=== PATIENT | female | born 1995 | race Caucasian/White ===

== ENCOUNTER 2022-04-10 18:58 | Emergency (ER) | payer BC, SELFPAY ==
[2022-04-10 19:02] VITALS: BP 94/79; PULSE 95; RESP 18; TEMP 36.7; O2SAT 99; BMI 21.3
--- NOTE | 2022-04-10 19:31 | US_ITS ---
STUDY: ULTRASOUND TRANSVAGINAL CLINICAL: Female, 27 years old. Right lower quadrant abdominal pain. TECHNIQUE: Transvaginal COMPARISON: None. FINDINGS: The anteverted and anteflexed and midline uterus measures 7.4 x 4.4 x 3.2 cm There are no myometrial masses. Endometrium measures 3 mm in thickness and is hyperechoic.. There are no endometrial masses, and there is no fluid in the endometrial cavity. There is an IUD in satisfactory position within the endometrial cavity. Normal uterine cervix. Normal right ovary, measuring 2.4 x 2.6 x 1.9 cm cm. There are multiple follicles without a dominant cyst. Normal vascularity on Doppler imaging. No right adnexal mass or fluid collection. Normal left ovary, measuring 2.9 x 1.8 x 1.7 cm cm. There are multiple follicles without a dominant cyst. Normal vascularity on Doppler imaging. No left adnexal mass or fluid collection. There is no free fluid in the pelvis. Polycystic ovary disease: No. US/Transvaginal Non- IMPRESSION: Normal pelvic ultrasound. There is an IUD in satisfactory position within the endometrial cavity. Electronically Signed: Tonny Moulton DO at 20:55 EST ,
--- NOTE | 2022-04-10 19:41 | EX.ED.DYSGE1 ---
HPI <DANY Joseph - Last Filed: 04/10/22 20:58> History of Present Illness Chief Complaint: Abd Pain Narrative Narrative: Right lower quadrant abdominal pain PFSH <DANY Joseph - Last Filed: 04/10/22 20:58> PFSH Allergy/AdvReac Type Severity Reaction Status Date / Time No Known Allergies Allergy Verified 04/10/22 19:01 Social History Smoking Status: Never smoker ROS <DANY Joseph - Last Filed: 04/10/22 20:58> ROS ED ROS Narrative Constitutional: Negative for fever, chills, weight loss, weakness Eyes: Negative for vision loss, vision change, double vision ENT: Negative for any sore throat, ear pain, congestion Cardiovascular: Negative for any chest pain, tightness, palpitations Respiratory: Negative for any cough, sputum production, hemoptysis, dyspnea, dyspnea on exertion, orthopnea Gastrointestinal: Negative for any nausea, vomiting, diarrhea, constipation, blood in stool, blood in vomit. Positive right lower quadrant abdominal pain : Negative for any urinary frequency, dysuria, retention, blood in urine Muscle skeletal: Negative for any muscle joint pain, stiffness, myalgias, arthralgias, neck pain, back pain Neurological: Negative for any headache, syncope, numbness or tingling, dizziness Skin: Negative for any rashes, lumps, itching, abrasions, lacerations Psychiatric: Negative for any depression, anxiety, stress, suicidal ideation, homicidal ideation Hematologic: Negative for any easy bruising, excessive bruising, easy bleeding Allergies: Negative for any eczema, hives, rash EXAM <DANY Joseph - Last Filed: 04/10/22 20:58> Physical Exam Narrative Exam Narrative: Vital signs reviewed. HEET: Head normocephalic atraumatic, TMs clear bilaterally. Posterior pharynx is clear, moist mucous membranes. Nares clear bilaterally. Neck: Supple with no lymphadenopathy or tenderness. No signs of meningismus, negative jolt sign. Cardiac: Regular rate and rhythm no murmurs gallops or rubs, equal peripheral pulses bilaterally. Respiratory: Lungs clear to auscultation bilaterally. No chest tenderness. Abdomen: Soft, nondistended. No abdominal bruit or pulsatile masses. No hepatosplenomegaly. Bowel sounds equal in all quadrants. Patient does have pain to palpation to the right lower quadrant, physical examination is more pelvic and abdomen. Extremities: No peripheral edema, no signs of gross trauma or deformity. Active full range of motion of all extremities. Neuro: Cranial nerves II through XII intact, no focal neurological deficits. Skin: Clean dry and intact with no rash, purpura, petechiae, vesicles or pustules. Backs/flank: No CVA tenderness, no midline spinal tenderness, no deformity. Psych: Normal mood and affect. No SI, HI or acute psychosis. Const Vital Signs: 04/10/22 19:02 Temperature 98.0 F Temperature Source Temporal Pulse Rate 95 Respiratory Rate 18 Blood Pressure 94/79 Blood Pressure Mean 84 Pulse Ox 99 Oxygen Delivery Method Room Air <Dr. Marycarmen Galvez MD - Last Filed: 04/10/22 23:27> Physical Exam Const Vital Signs: 04/10/22 19:02 Temperature 98.0 F Temperature Source Temporal Pulse Rate 95 Respiratory Rate 18 Blood Pressure 94/79 Blood Pressure Mean 84 Pulse Ox 99 Oxygen Delivery Method Room Air MDM <DANY Josehp - Last Filed: 04/10/22 20:58> [facility] [place] Lab Data Labs: Laboratory Results - last 24 hr 04/10/22 04/10/22 04/10/22 19:43 19:43 21:25 WBC 7.7 RBC 4.60 Hgb 13.8 Hct 40.5 MCV 88.0 MCH 30.0 MCHC 34.1 RDW Std Deviation 37.9 RDW Coeff of Maritza 11.8 Plt Count 209 MPV 9.7 Immature Gran % (Auto) 0.400 Neut % (Auto) 52.9 Lymph % (Auto) 35.3 [place] % (Auto) 9.3 Eos % (Auto) 1.7 Baso % (Auto) 0.4 Absolute Neuts (auto) 4.1 Absolute Lymphs (auto) 2.73 Nucleated RBC % 0 Sodium 141 Potassium 3.6 Chloride 108 H Carbon Dioxide 28.0 Anion Gap 5 BUN 13 Creatinine 0.70 Estim Creat Clear Calc 90.29 Est GFR (MDRD) Af Amer 129 Est GFR (MDRD) Non-Af 107 BUN/Creatinine Ratio 18.7 Glucose 102 Calcium 9.3 Total Bilirubin 0.70 AST 11 L ALT 21 Alkaline Phosphatase 48 Total Protein 7.4 Albumin 3.8 Globulin 3.6 Albumin/Globulin Ratio 1.1 Lipase 88 Urine Color Yellow Urine Clarity Clear Urine pH 7.0 Ur Specific Graham 1.010 Urine Protein Negative Urine Glucose (UA) Normal Urine Ketones Negative Urine Occult Blood Negative Urine Nitrite Negative Urine Bilirubin Negative Urine Urobilinogen 1 H Ur Leukocyte Esterase 25 H Urine RBC 0 SEEN Urine WBC 0-5 SEEN Ur Squamous Epith Cells 0-5 SEEN Urine Bacteria 1+ Urine Mucus 3+ Urine Test Negative Radiography Diagnostic Testing: Clinical Impression(s) from Imaging Studies Transvaginal US 04/10/22 19:31 IMPRESSION: Normal pelvic ultrasound. There is an IUD in satisfactory position within the endometrial cavity. Electronically Signed: Tonny Moulton DO at 20:55 EST , Abdomen/Pelvis CT 04/10/22 22:00 IMPRESSION: Large colonic stool burden as can be seen with constipation. Normal appendix. Electronically Signed: Ashish Rodríguez MD at 23:21 EST , Treatment and Re-Evaluation Narrative: Patient appears well, patient appears nontoxic, vital signs are stable. Patient presents to the emergency department 1 day of right lower quadrant abdominal pain. Patient's physical examination was consistent with more of a lower pelvic abdominal pain. She will be started off with a pelvic ultrasound as well as some basic laboratory values. Patient when she is at rest is a minimal amount of pain, she denies any nausea or vomiting. <Dr. Marycarmen Galvez MD - Last Filed: 04/10/22 23:27> [facility] [place] Lab Data Attestation: I reviewed the patient's lab results. Labs: Laboratory Results - last 24 hr 04/10/22 04/10/22 04/10/22 19:43 19:43 21:25 WBC 7.7 RBC 4.60 Hgb 13.8 Hct 40.5 MCV 88.0 MCH 30.0 MCHC 34.1 RDW Std Deviation 37.9 RDW Coeff of Maritza 11.8 Plt Count 209 MPV 9.7 Immature Gran % (Auto) 0.400 Neut % (Auto) 52.9 Lymph % (Auto) 35.3 [place] % (Auto) 9.3 Eos % (Auto) 1.7 Baso % (Auto) 0.4 Absolute Neuts (auto) 4.1 Absolute Lymphs (auto) 2.73 Nucleated RBC % 0 Sodium 141 Potassium 3.6 Chloride 108 H Carbon Dioxide 28.0 Anion Gap 5 BUN 13 Creatinine 0.70 Estim Creat Clear Calc 90.29 Est GFR (MDRD) Af Amer 129 Est GFR (MDRD) Non-Af 107 BUN/Creatinine Ratio 18.7 Glucose 102 Calcium 9.3 Total Bilirubin 0.70 AST 11 L ALT 21 Alkaline Phosphatase 48 Total Protein 7.4 Albumin 3.8 Globulin 3.6 Albumin/Globulin Ratio 1.1 Lipase 88 Urine Color Yellow Urine Clarity Clear Urine pH 7.0 Ur Specific Graham 1.010 Urine Protein Negative Urine Glucose (UA) Normal Urine Ketones Negative Urine Occult Blood Negative Urine Nitrite Negative Urine Bilirubin Negative Urine Urobilinogen 1 H Ur Leukocyte Esterase 25 H Urine RBC 0 SEEN Urine WBC 0-5 SEEN Ur Squamous Epith Cells 0-5 SEEN Urine Bacteria 1+ Urine Mucus 3+ Urine Test Negative Radiography Diagnostic Testing: Clinical Impression(s) from Imaging Studies Transvaginal US 04/10/22 19:31 IMPRESSION: Normal pelvic ultrasound. There is an IUD in satisfactory position within the endometrial cavity. Electronically Signed: Tonny Moulton DO at 20:55 EST Reading Location ID and State: [address] [place] [address] Tel [phone], Service support , Abdomen/Pelvis CT 04/10/22 22:00 IMPRESSION: Large colonic stool burden as can be seen with constipation. Normal appendix. Electronically Signed: Ashish Rodríguez MD at 23:21 EST , Treatment and Re-Evaluation Narrative: Patient appears well, patient appears nontoxic, vital signs are stable. Patient presents to the emergency department 1 day of right lower quadrant abdominal pain. Patient's physical examination was consistent with more of a lower pelvic abdominal pain. She will be started off with a pelvic ultrasound as well as some basic laboratory values. Patient when she is at rest is a minimal amount of pain, she denies any nausea or vomiting. Patient seen and evaluated with DIANA. I personally interviewed and examined the patient. I was involved in all aspects of patient's orders, interpretation of results, and treatment. Patient present secondary to right lower quadrant abdominal pain that started this morning has been persistent throughout the day. She is not had much of an appetite did not want to eat or drink. She has a history of irregular periods but denies known history of ovarian cyst. She has not had fever or chills. Patient sitting upright in bed no acute distress. Nontoxic-appearing. Head and neck examination unremarkable. Heart is regular rate and rhythm. Lung sounds are clear. Abdomen is soft with mild tenderness in the right lower quadrant. No guarding or rebound noted. Active bowel sounds are noted. Pelvic ultrasound initially obtained. This reveals normal female pelvis with IUD in good position. Lab work reveals no acute abnormalities. Urinalysis reveals 1+ bacteria but no nitrites and 0-5 white cells. test is negative. Patient is then sent for CT scan of the abdomen pelvis with IV contrast. CT scan reveals normal-appearing appendix. No evidence of kidney stone. Large colonic stool burden is noted. Test results are discussed with the patient. I suggested getting MiraLAX [id number]. Return instructions provided. Discharge Plan Triage Chief Complaint: Abd Pain ED Midlevel Provider: Xavier Jiang ED Provider: Marycarmen Galvez Dx/Rx/DC Orders Clinical Impression: Abdominal pain Instructions: ED Abdominal Pain Unkn Cause Fem Primary Care Provider: Care Physician,No Primary Referrals: Heather Le DO [Med Staff - [employer]] - As Needed Care Physician,No Primary [Primary Care Provider] - Disposition Disposition: Home, Self Care
[2022-04-10 20:01] LABS: Absolute Lymphocyte Count 2.73 X10^3/uL (0.83-4.51); Absolute Neutrophil Count 4.1 X10^3/uL (2.0-7.7); Basophil# 0.03 X10^3/uL; Basophil% 0.4 % (0-1); Eosinophil# 0.13 X10^3/uL; Eosinophils% 1.7 % (0-5); Hematocrit 40.5 % (37-47); Hemoglobin 13.8 g/dL (12.0-15.0); Lymphocyte # 2.73 X10^3/ul (0.83-4.51); Lymphocyte % 35.3 % (19-41); Mean Corp Hgb Conc 34.1 g/dL (32-36); Mean Platelet Vol. 9.7 fl (6.2-12.0); Monocyte# 0.72 X10^3/uL; Monocyte% 9.3 % (0-10); NRBC Flagged by Analyzer 0 % (0-5); Neutrophil # 4.09 X10^3/uL (2.7-7.7); Neutrophil % 52.9 % (47-70); Platelet Count 209 K/mm3 (150-450); RBC Distribution Width CV 11.8 % (11.6-14.6); RBC Distribution Width SD 37.9 fl (35.1-43.9); White Blood Count 7.7 K/mm3 (4.4-11.0)
[2022-04-10 20:27] LABS: ALB/GLOB Ratio 1.1 RATIO (0.9-2.4); AST(SGOT) 11 U/L (15-37); Alanine Aminotransfer ALT/SGPT 21 U/L (13-56); Albumin, Serum 3.8 g/dL (3.2-5.0); Alkaline Phosphatase 48 U/L (45-117); Anion Gap 5 (5-15); BUN 13 mg/dL (7-18); BUN/Creat Ratio 18.7 RATIO (10-20); Calcium,Total 9.3 mg/dL (8.5-10.1); Chloride 108 mmol/L (98-107); EST Glomerular Filtration Rate 107 mL/min (>60); Est Glom Filt Rate - Afr Amer 129 mL/min (>60); Estimated Creatinine Clearance 90.29 ml/min; Globulin 3.6 g/dL (2.2-4.2); Glucose 102 mg/dL (74-106); Lipase 88 U/L (73-393); Potassium 3.6 mmol/L (3.5-5.1); Protein, Total 7.4 g/dL (6.4-8.2); Sodium Level 141 mmol/L (136-145)
[2022-04-10 21:33] LABS: Red Blood Cells-Urine 0 SEEN /hpf (0-5)
[2022-04-10 21:42] LABS: Color, Urine Yellow (Yellow); Glucose, Dipstick Normal (Normal); Ketone-Dipstick Negative (Negative); Leukocyte Esterase-Dipstick 25 /ul (Negative); Nitrite-Dipstick Negative (Negative); Occult Blood-Urine Negative /ul (Negative); Protein-Dipstick Negative (Negative); Urine Bilirubin Dipstick Negative (Negative); Urine Clarity Clear (Clear); Urine Urobilinogen 1 mg/dl (Normal)
[2022-04-10 21:44] LABS: Internal QC Validated? YES +Cl - CLEAR BKGD; Pregnancy, Urine Negative Negative
--- NOTE | 2022-04-10 22:00 | CT_ITS ---
INDICATION: RLQ pain EXAMINATION: CT ABDOMEN AND PELVIS WITH CONTRAST - CT Abdomen And Pelvis W/ Contrast Injection TECHNIQUE: Helically acquired images were obtained of the abdomen and pelvis following IV contrast. A radiation dose optimization technique was used for this scan. IV Contrast dosage and agent: 95 mL [id number] Oral contrast: None. COMPARISON: Pelvic ultrasound April 10, 2022. FINDINGS: LOWER CHEST: Lung bases are clear. No cardiomegaly or pericardial effusion. LIVER: Homogeneous. No focal mass. GALLBLADDER AND BILIARY TREE: No calcified gallstones. No gallbladder distension or wall edema. No intra- or extrahepatic biliary ductal dilation. PANCREAS: No focal cystic or solid mass. SPLEEN: Normal size without focal cystic or solid mass. ADRENAL GLANDS: No nodules. KIDNEYS AND URETERS: Normal renal size and position. No hydronephrosis. PERITONEUM: No ascites or free air. No other fluid collection. BOWEL: Normal appendix. No stomach or bowel distension. Large colonic stool burden within the rectum. LYMPH NODES: No enlarged mesenteric or retroperitoneal lymph nodes. VESSELS: Aorta is non-dilated. URINARY BLADDER: Unremarkable. REPRODUCTIVE ORGANS: Intrauterine device in appropriate position. Unremarkable uterus. Ovaries are not well seen. No overt adnexal mass. ABDOMINAL WALL: No discrete abdominal or pelvic wall hernia. BONES: No lytic or blastic abnormality. CT/Abdomen/Pelvis W IV Cont ONLY IMPRESSION: Large colonic stool burden as can be seen with constipation. Normal appendix. Electronically Signed: Ashish Rodríguez MD at 23:21 EST ,
[2022-04-10 22:02] LABS: Bacteria 1+ /hpf (None Seen); Mucous, Urine 3+ /hpf (<or=2+); Squamous Epithelial Cells - UA 0-5 SEEN /hpf (5-10); White Blood Cells 0-5 SEEN /hpf (0-5)
== END 2022-04-10 23:44 | disposition home or self-care (01) ==
PROVIDERS: Nurse Practitioner; Emergency Provider Emergency Medicine; Visit Provider Emergency Medicine
DX: R10.31 Right lower quadrant pain (principal); Z97.5 Presence of (intrauterine) contraceptive device
CPT/HCPCS: 74177; 76830; 80053; 81001; 81025; 83690; 85025; 93976; 99283; Q9967; A4216